=== PATIENT | male | born 1945 | race Caucasian/White ===

== ENCOUNTER 2022-11-23 11:30 | Emergency (ER) | payer MEDICARE, OTHER, SELFPAY ==
[2022-11-23 11:31] VITALS: BP 163/95; PULSE 87; RESP 14; TEMP 36.7; O2SAT 99; BMI 25.8
[2022-11-23 11:39] VITALS: PULSE 87; RESP 24; O2SAT 99
--- NOTE | 2022-11-23 11:41 | DI.CT.S_ITS ---
PROCEDURE: CT HEAD/BRAIN WO CON INDICATIONS: syncope/head trauma TECHNIQUE: Noncontrast 4.5 mm thick angled axial sections acquired from the foramen magnum to the vertex, with coronal and sagittal reformats. For radiation dose reduction, the following was used: automated exposure control, adjustment of mA and/or kV according to patient size. COMPARISON: None. FINDINGS: Image quality: Excellent. CSF spaces: Basal cisterns are patent. No extra-axial fluid collections. The ventricles are symmetric in size and shape. Brain: No intracranial bleeds or masses. There is cerebral volume loss for age, with resultant ventricular and sulcal prominence. There are periventricular and deep white matter chronic small vessel ischemic changes. There is intracranial internal carotid artery atherosclerosis. Skull and face: Calvarium and visualized facial bones appear intact, without suspicious lesions. Sinuses: Visualized sinuses and mastoids are clear. IMPRESSION: No acute intracranial pathology. Dictated by: Dony Cota M.D. on 11/23/2022 at 12:17 Approved by: Dony Cota M.D. on 11/23/2022 at 12:19
[2022-11-23 11:52] LABS: Add Manual Diff / Slide Review NO; Basophils Absolute Auto 100 /uL (0-100); Basophils Percent Auto 0.4 % (0-2); Eosinophils Absolute Auto 100 /uL (0-450); Eosinophils Percent Auto 0.7 % (2-4); Hematocrit 42.1 % (41-53); Hemoglobin 14.4 g/dL (13.5-17.5); Lymphocytes Absolute Auto 4100 /uL (1100-4500); Lymphocytes Percent Auto 29.5 % (25-40); Mean Corpuscular HGB Conc 34.2 % (30-36); Mean Corpuscular Hemoglobin 30.5 PG (26-34); Mean Corpuscular Volume 89.3 fL (80-100); Monocytes Absolute Auto 1000 /uL (0-900); Monocytes Percent Auto 7.4 % (3-14); Neutrophils Absolute Auto 8600 /uL (1500-7000); Platelet Count 241 X10^3/uL (150-400); Red Blood Cell Count 4.72 X10^6/uL (4.5-5.9); Red Cell Distribution Width 13.4 % (11.6-14.8); White Blood Cell Count 13.9 X10^3/uL (4.5-11.0)
[2022-11-23] MEDS: TET,DIPH,PERTUSS(ACELL),VAC/PF 0.5 ML SYRINGE IM (11:56)
[2022-11-23] MEDS: SODIUM CHLORIDE 0.9% 500 ML 1000 ML IV (11:58)
[2022-11-23 12:00] VITALS: BP 144/81; PULSE 74; RESP 22; O2SAT 97
--- NOTE | 2022-11-23 12:04 | PC.NURSE ---
Pt AOx4, GCS 15. States he was in the bathroom at 0230 and he felt tremendous abd pain, he kneeled to the ground and passed out. He does not remember passing out, only remembers kneeling. Pt woke with an abrasion on his forehead, noticed blood in the bathtub and felt sick to his stomach. Pt went back to bed and came to ED late morning for eval.
[2022-11-23 12:10] VITALS: BP 140/77; PULSE 78; RESP 18; O2SAT 97
[2022-11-23 12:13] LABS: Alanine Aminotransferase 31 IU/L (<50); Albumin 4.4 g/dL (3.5-5.0); Albumin Globulin Ratio 1.6 (1.0-2.8); Alkaline Phosphatase 52 U/L (38-126); Aspartate Aminotransferase 38 IU/L (17-59); BUN Creatinine Ratio 32.1 (6-22); Bilirubin Total 0.6 mg/dL (0.2-1.3); Blood Urea Nitrogen 27 mg/dL (9-20); Calcium 9.2 mg/dL (8.4-10.2); Carbon Dioxide 26 mmol/L (22-32); Chloride 101 mmol/L (98-107); Estimated Glomerular Filt Rate > 60 mL/min (>60); Globulin 2.8 g/dL (1.7-4.1); Glucose 108 mg/dL (80-110); HEMOLYSIS < 15 (0-50); Potassium 4.6 mmol/L (3.4-5.1); Sodium 135 mmol/L (137-145); Total Protein 7.2 g/dL (6.3-8.2)
[2022-11-23 12:25] LABS: Troponin I < 0.012 ng/mL (0.01-0.034)
--- NOTE | 2022-11-23 12:25 | ED_ITS ---
HPI - General Adult General Chief complaint: Syncope Stated complaint: diaherrea/sweats Time Seen by Provider: 11/23/22 11:33 Source: patient Mode of arrival: Ambulatory History of Present Illness HPI narrative: Patient presents from home by private vehicle for evaluation of head injury after syncopal event at approximately 2:00 a.m. today. Patient states that yesterday he ate enchiladas that his neighbor gave him and subsequently had what he believes is food poisoning with diarrhea and severe nausea. Last night he went to the restroom and had multiple episodes of nonbloody diarrhea. He felt nauseous and got on all fours thinking he was going to simultaneously throw up. The next thing he knows his head was resting against the side of the bathtub. He has a small bump on his forehead. This morning he told his friend about what happened in his friend told him that he needed to go to the emergency department for evaluation of his head injury. Patient denies use of blood thinners. Related Data Home Medications Medication Instructions Recorded Confirmed fluorouracil topical 03/13/22 03/13/22 lisinopril-hydrochlorothiazide PO 03/13/22 03/13/22 rosuvastatin PO 03/13/22 03/13/22 Allergies Allergy/AdvReac Type Severity Reaction Status Date / Time Penicillins Allergy Mild Nausea Verified 11/23/22 11:39 Review of Systems Review of Systems Narrative: CONSTITUTIONAL- Denies: fever, chills, HEENT- Denies: sore throat, nosebleed, vision changes RESPIRATORY- Denies: shortness of breath, cough, wheezing CARDIAC- Denies: chest pain, edema, orthopnea GI-reports: Nausea, diarrhea, resolved Denies: abdominal pain, vomiting, constipation - Denies: frequency, dysuria, hematuria, flank pain MSK- Denies: extremity pain, extremity swelling, joint pain, joint swelling SKIN- Denies: rash, itching, burn, swelling NEUROLOGICAL- Denies: headache, numbness, weakness, dizziness PSYCHIATRIC- Denies: anxiety, depression, suicidal ideation, homicidal ideation Patient History Social History Smoking Status: Never smoker Smoking Status: Never smoker alcohol intake frequency: holidays/special occasions only Substance Use Type: does not use Exam Narrative Exam Narrative: Const: Well-nourished, Well-developed, appears stated age Eyes: PERRL, EOMI, conjunctiva normal ENT: Atraumatic, dentition normal, mucous membranes moist Cardiac: regular rate, regular rhythm RESP: unlabored, clear bilaterally, no wheezing GI: Atraumatic, nontender, nondistended, no rebound, no guarding MSK: Atraumatic, full range of motion, pulses equal Skin: Warm, Dry, superficial abrasion frontal forehead, no lacerations Neuro: AO x3, CN II-XII grossly intact, moves all extremities Psych: affect normal, mood normal, not suicidal, not homicidal Initial Vital Signs Initial Vital Signs: Vital Signs Temperature 98.0 F 11/23/22 11:31 Pulse Rate 87 11/23/22 11:31 Respiratory Rate 14 11/23/22 11:31 Blood Pressure 163/95 H 11/23/22 11:31 Pulse Oximetry 99 11/23/22 11:31 Oxygen Delivery Method Room Air 11/23/22 11:31 Course Course Course Narrative: Well appearing patient with syncopal episode while simultaneously having diarrhea and nausea/vomiting. Currently asymptomatic, he states that his nausea and diarrhea have resolved since waking up this morning. He states he is here today to be on the safe side due to his head injury. Due to patient's age and possible LOC we will order CT scan of the head. Orders Ordered: ED Orders 11/23/22 11:41 CT head/brain wo con Stat EKG-12 Lead Stat 11/23/22 11:45 CBC Auto Diff [Complete Blood Count AUTO DIFF] Stat CMP [Comprehensive Metabolic Panel] Stat Trop I [Troponin I] Stat Discontinued Medications Diphtheria/Tetanus/Acell Pertussis (Tet,Diph,Pertuss(Acell),Vac/Pf 0.5 Ml Syringe) 0.5 ml IM .ONCE ONE Stop: 11/23/22 11:48 Last Admin: 11/23/22 11:56 Dose: 0.5 ml Documented By: SHANIQUE Sodium Chloride (Normal Saline 0.9%) 500 mls @ 1,000 mls/hr IV BOLUS ONE Stop: 11/23/22 12:10 Last Infusion: 11/23/22 12:50 Dose: 0 mls/hr Documented By: SHANIQUE(2) Admin: 11/23/22 11:58 Dose: 1,000 mls/hr Documented By: SHANIQUE Tetanus/Diphtheria Toxoids (Tetanus Diphtheria Toxoids 0.5 Ml Vial) 0.5 ml IM .ONCE ONE Stop: 11/23/22 11:43 Last Admin: 11/23/22 11:49 Dose: Not Given Documented By: SHANIQUE(2) Reevaluation(s) Reevaluation #1: Laboratory work is reviewed, CT imaging negative for acute findings. Patient relieved to know that there is no injury to his head. His tetanus shot was updated. He will follow with his primary care physician Vital Signs Vital signs: Vital Signs - 8 hr 11/23/22 11:31 11/23/22 11:39 11/23/22 12:00 Temperature 98.0 F Pulse Rate 87 87 Respiratory Rate 14 24 Blood Pressure 163/95 H 144/81 H Pulse Oximetry 99 99 Oxygen Delivery Method Room Air 11/23/22 12:00 11/23/22 12:10 11/23/22 12:10 Temperature Pulse Rate 74 78 Respiratory Rate 22 18 Blood Pressure 140/77 Pulse Oximetry 97 97 Oxygen Delivery Method 11/23/22 12:30 Temperature Pulse Rate 73 Respiratory Rate 14 Blood Pressure Pulse Oximetry 98 Oxygen Delivery Method Medical Decision Making Lab Data 11/23/22 11:45 11/23/22 11:45 Labs: Lab Results 11/23/22 11/23/22 Range/Units 11:45 11:45 WBC 13.9 H (4.5-11.0) X10^3/uL RBC 4.72 (4.5-5.9) X10^6/uL Hgb 14.4 (13.5-17.5) g/dL Hct 42.1 (41-53) % MCV 89.3 (80-100) fL MCH 30.5 (26-34) PG MCHC 34.2 (30-36) % RDW 13.4 (11.6-14.8) % Plt Count 241 (150-400) X10^3/uL Neut % (Auto) 62.0 (50-75) % Lymph % (Auto) 29.5 (25-40) % [place] % (Auto) 7.4 (3-14) % Eos % (Auto) 0.7 L (2-4) % Baso % (Auto) 0.4 (0-2) % Neut # (Auto) 8600 H (9167-0156) /uL Lymph # (Auto) 4100 (0357-2712) /uL [place] # (Auto) 1000 H (0-900) /uL Eos # (Auto) 100 (0-450) /uL Baso # (Auto) 100 (0-100) /uL Sodium 135 L (137-145) mmol/L Potassium 4.6 (3.4-5.1) mmol/L Chloride 101 (98-107) mmol/L Carbon Dioxide 26 (22-32) mmol/L BUN 27 H (9-20) mg/dL Creatinine 0.84 (0.66-1.25) mg/dL Estimated GFR > 60 (>60) mL/min BUN/Creatinine Ratio 32.1 H (6-22) Glucose 108 (80-110) mg/dL Calcium 9.2 (8.4-10.2) mg/dL Total Bilirubin 0.6 (0.2-1.3) mg/dL AST 38 (17-59) IU/L ALT 31 (<50) IU/L Alkaline Phosphatase 52 (38-126) U/L Troponin I < 0.012 (0.01-0.034) ng/mL Total Protein 7.2 (6.3-8.2) g/dL Albumin 4.4 (3.5-5.0) g/dL Globulin 2.8 (1.7-4.1) g/dL Albumin/Globulin Ratio 1.6 (1.0-2.8) Discharge Plan Departure Patient Disposition: Home Clinical Impression: Vasovagal syncope Instructions: DI for Syncope in Adults (Fainting) Prescriptions: No Action lisinopril-hydrochlorothiazide PO rosuvastatin PO fluorouracil topical Referrals: Miscellaneous,Doctor, MD [Primary Care Provider] - Stand Alone Forms: Patient Portal/API
[2022-11-23 12:30] VITALS: PULSE 73; RESP 14; O2SAT 98
== END 2022-11-23 12:49 | disposition home or self-care (01) ==
PROVIDERS: Emergency Provider Emergency Medicine
DX: R55 Syncope and collapse (principal); S09.90XA Unspecified injury of head, initial encounter; Z23 Encounter for immunization
CPT/HCPCS: 36415; 70450; 80053; 84484; 85025; 90471; 93005; 96360; 99284; 90715

== ENCOUNTER → 2023-05-23 13:22 | Outpatient (CLI) | payer MEDICARE, OTHER, SELFPAY ==
--- NOTE | 2023-05-23 13:24 | DI.RAD.S_ITS ---
PROCEDURE: XR FINGER LT MIN 2V INDICATIONS: Left middle finger pain TECHNIQUE: AP hand, 2 views of the 3rd finger(s) acquired. COMPARISON: None. FINDINGS: Bones: No fractures or dislocations. Normal alignment. Joint spaces are maintained. No suspicious bony lesions. Soft tissues: No suspicious soft tissue calcifications. IMPRESSION: No acute bony abnormality. Dictated by: Mita Glaser M.D. on 05/23/2023 at 18:38 Approved by: Mita Glaser M.D. on 05/23/2023 at 18:38
== END ==
PROVIDERS: Referring Provider Nurse Practitioner Family; Visit Provider Nurse Practitioner Family
DX: M79.645 Pain in left finger(s) (principal)
CPT/HCPCS: 73140

== ENCOUNTER → 2024-02-25 10:30 | Outpatient (CLI) | payer MEDICARE, OTHER, SELFPAY ==
--- NOTE | 2024-02-25 10:31 | DI.RAD.S_ITS ---
PROCEDURE: XR RIBS LT MIN 3V W CXR1V INDICATIONS: Left rib pain anterior TECHNIQUE: 2 views of the ribs were acquired, along with a single view chest. COMPARISON: None. FINDINGS: Heart, mediastinum and pulmonary vascular: Heart is normal in size and configuration. Mediastinum is unremarkable. Pulmonary vascular is normal. Lungs: Clear Pleural spaces: Normal-no effusions or pneumothorax. Bones and soft tissues: Left ribs are unremarkable IMPRESSION: Normal chest and left ribs. Dictated by: Ludwin Ma M.D. on 02/26/2024 at 9:13 Approved by: Ludwin Ma M.D. on 02/26/2024 at 9:14
== END ==
PROVIDERS: Referring Provider Nurse Practitioner Family; Visit Provider Nurse Practitioner Family
DX: R07.81 Pleurodynia (principal)
CPT/HCPCS: 71101